=== PATIENT | male | born 1965 | race Caucasian/White ===

== ENCOUNTER 2023-01-01 11:17 | Emergency (ER) | payer MEDICAID, SELFPAY ==
[2023-01-01 11:24] VITALS: BP 188/88; PULSE 108; RESP 20; TEMP 36.8; O2SAT 96; BMI 23.4
--- NOTE | 2023-01-01 11:30 | ED_ITS ---
HPI - Extremity Injury (Lower) General Chief Complaint: Extremity Injury, Lower Stated Complaint: R LEG PAIN/COMPLICATIONS Time Seen by Provider: 01/01/23 11:23 History of Present Illness HPI Narrative: this patient is here to have his leg evaluated after having an emergency surgical procedure done outlast. After having the procedure he flew home. He does not have any operative reports but twenty describes it he had a blunt injury to his legs it caused a large hematoma and ended up having a near compartment syndrome so they did emergency procedure to decompress the swelling in his right leg and put in a wound pump after that. He is not on any antibiotics. He is not running a fever. He's not on any anticoagulants. He did not have deep vein thrombosis it was all related to a traumatic event. He does not have a physician in the area. Here for wound evaluation and recommendations for follow-up. 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 They showed me pictures of his leg postoperatively and consistent with a drainage procedure for a hematoma and his right calf area. No doubt they did that to prevent compartment syndrome. Were awaiting transfer of his records from that institution but have received nothing at the time this dictation. Constitutional his vital signs showed mild elevation of his blood pressure probably due to anxiety and discomfort. He says he's been taking half of the Vicodin tablet every six hours. Examination extremity shows the dressing to be taken down. It actually looks good with no evidence of erythema or purulence or follow smell. Incisional wounds are noted where they had the drainage for his back. His pulses are distal extremities are present. He does have some edema of the distal ankle and foot. He confided in me that he slept all night last night with the leg in a dependent position. Proximally he does not have any venous cords or ropiness in his thigh area. MDM - Extremity Injury (Lower) MDM Narrative Medical decision making narrative: we will do an ultrasound to make sure he has no deep vein thrombosis. He will need to be referred to orthopedics occupational health nurse manager. I'll give him three days worth of pain medications. We will redress the wound and apply a wide Bill wrap to help rid of the peripheral edema and we also talked about the necessity of keeping the leg elevated. Discharge Plan Discharge Chief Complaint: Extremity Injury, Lower Clinical Impression: Post-op pain Patient Disposition: Home, Self-Care Time of Disposition Decision: 12:45 Prescriptions / Home Meds: No Action hydrocodone-acetaminophen 5-325 mg tablet 0.5 tab PO Q6H PRN (Reason: pain) ibuprofen 200 mg capsule 600 mg PO BID Instructions: Pain Management After Surgery (DC) Additional Instructions: elevate leg/niorco Stand Alone Forms: Portal Instructions Referrals: Physician,Non-Staff, MD [Primary Care Provider] - 1 week
--- NOTE | 2023-01-01 11:31 | US_ITS ---
The [address] [address] Patient Name: JD GARCIA MRN: [id number] date: 1965 Sex: M Assigned Patient Location: ER Current Patient Location: ER Accession/Order Number: [id number] Exam Date: 01/01/2023 12:05 Report Date: 01/01/2023 12:42 At the request of: BECKIE ELIAS Procedure: US venous doppler LE RT EXAM: US venous doppler LE RT HISTORY: post op swelling COMPARISON: None. TECHNIQUE: Evaluation of the deep veins of the right lower extremity was performed utilizing B-mode, color flow and spectral analysis. FINDINGS: The visualized vessels comprising the deep venous systems from the common femoral vein through the calf veins demonstrate appropriate compressibility, spontaneous color Doppler flow, and augmentation of flow on spectral Doppler with distal compression. Additional findings: There is short segment of occlusive thrombus involving the mid great saphenous vein, extending to the distal up to the wound, representing thrombophlebitis. There is soft tissue swelling. IMPRESSION: No sonographic evidence of deep venous thrombosis of the right lower extremity. Short segment of occlusive thrombus involving the mid great saphenous vein, extending to the distal up to the wound, representing thrombophlebitis. Electronically authenticated by: CORINNE SHEETS Date: 01/01/2023 12:42
[2023-01-01 11:50] VITALS: O2SAT 97
[2023-01-01] MEDS: HYDROMORPHONE HCL 1 MG/ML CARTRIDGE IM (11:55)
[2023-01-01 12:24] VITALS: O2SAT 95
[2023-01-01 13:10] VITALS: BP 157/88; PULSE 84; RESP 18; O2SAT 99
== END 2023-01-01 13:20 | disposition home or self-care (01) ==
PROVIDERS: Emergency Provider Emergency Medicine Emergency Medical Services; Family Provider Family Medicine
DX: G89.18 Other acute postprocedural pain (principal); M79.604 Pain in right leg
CPT/HCPCS: 93971; 96372; 99284; J1170

== ENCOUNTER 2024-02-06 13:46 | Emergency (ER) | payer MEDICAID, SELFPAY ==
[2024-02-06 13:49] VITALS: BP 136/83; PULSE 83; TEMP 36.6; O2SAT 98; BMI 20.9
[2024-02-06] MEDS: LIDOCAINE/EPINEPHRINE/TETRACAINE 3 ML GEL.PF.APP TOPICAL (14:17)
[2024-02-06] MEDS: ONDANSETRON PF 4 MG/2 ML VIAL IV (14:18)
[2024-02-06] MEDS: VANCOMYCIN HCL 1,000 MG in 0.9 % SODIUM CHLORIDE 250 ML 250 MG IV (14:18)
[2024-02-06] MEDS: KETOROLAC TROMETHAMINE 30 MG/ML VIAL IVP (14:18)
--- NOTE | 2024-02-06 14:20 | ED.GENADUL1 ---
HPI HPI - General Adult General Chief complaint: Skin/Abscess/Foreign Body Stated complaint: RIGHT BREAST REDNESS AND TENDER Time Seen by Provider: 02/06/24 13:54 Source: patient Mode of arrival: walk-in History of Present Illness HPI narrative: 58-year-old male presents here with a chief presents around the right nipple area. Patient had a history of a piercing with an abscess over a year ago. He states 5 days ago he began to have some tenderness. He has been taking doxycycline. He presents today states he does not feel well. He is afebrile. Does not appear toxic but states he has been nauseous. Related Data Home Medications ?Medication ?Instructions ?Recorded ?Confirmed hydrocodone 5 mg-acetaminophen 325 0.5 tab PO Q6H PRN pain 01/01/23 01/01/23 mg tablet ibuprofen 200 mg capsule 600 mg PO BID 01/01/23 01/01/23 Allergies Allergy/AdvReac Type Severity Reaction Status Date / Time No Known Drug Allergies Allergy Verified 01/01/23 11:24 Opioid HPI Opioid Management Most Recent Opioid Data: Last Pain Scale 8 02/06/24 14:18 Last MAR Pain Assessment 02/06/24 14:18 Review of Systems ROS Narrative All Systems are negative except as noted/marked.All systems reviewed and otherwise negative this Exam Narrative Exam Narrative: Nurses note and vital signs reviewed and patient is not hypoxic. General: The patient appears well and in no apparent distress. Patient is resting comfortably on cart. Skin: Warm, dry, no pallor noted. 8x11cm area of induration to right breast around right nipple region Head: Normocephalic, atraumatic Eye: Normal conjunctiva, no drainage, EOMI. PERRL Ears, Nose, Mouth, and Throat: oral mucosa is moist. Nares patent. Mouth without vesicles. Ear canals patent. Tm's without Erythema Cardiovascular: Regular Rate and Rhythm Musculoskeletal: The patient has no evidence of calf tenderness, no pitting edema, symmetrical pulses noted bilaterally Neurological: A&O x4, normal speech Psychiatric: Cooperative Constitutional Vital Signs, click to edit/add: Last Vital Signs Temp 98 F 02/06/24 13:49 Pulse 83 02/06/24 13:49 Resp 22 H 02/06/24 13:49 BP 136/83 02/06/24 13:49 Pulse Ox 98 02/06/24 13:49 Course Vital Signs Vital signs: Vital Signs Temperature 98 F 02/06/24 13:49 Pulse Rate 83 02/06/24 13:49 Respiratory Rate 22 H 02/06/24 13:49 Blood Pressure 136/83 02/06/24 13:49 Pulse Oximetry 98 02/06/24 13:49 Temperature 98 F 02/06/24 13:49 Pulse Rate 83 02/06/24 13:49 Respiratory Rate 22 H 02/06/24 13:49 Blood Pressure 136/83 02/06/24 13:49 Pulse Oximetry 98 02/06/24 13:49 Medical Decision Making MDM Narrative Medical decision making narrative: Chief complaint of recurrent abscess to the right breast. Patient has a history of a nipple piercing last year and had an abscess. 5 days ago he began to have redness. He is currently on doxycycline. Area was anesthetized with let solution injected with 1% lidocaine solution x 3 3 cc today. Small incision made with 11 blade. Copious amount of purulent drainage was expressed from the area. Area was then irrigated with Hibiclens normal saline. Quarter inch packing then placed. Dry dressing applied by nursing staff. Patient is told to continue with his antibiotics as prescribed. He will be given short-term prescription for pain medicine. Follow-up with surgery. Instructions on removing packing were discussed. Patient states he may return to the emergency room for packing removal in 2 days. Patient verbalized understanding agrees with plan of care. Patient was given IV antibiotics labs were reviewed and unremarkable. Blood cultures are currently pending. Patient looks well at discharge Differential Diagnosis Differential Diagnosis: cellulitis, abscess Medical Records Medical records reviewed: Yes I reviewed the patient's medical records Lab Data Lab results reviewed: Yes I reviewed the patient's lab results Labs: Lab Results 02/06/24 Range/Units 14:07 Sodium 138 (136-145) mmol/L Potassium 4.1 (3.5-5.1) mmol/L Chloride 101 (98-107) mmol/L Carbon Dioxide 28.0 (21.0-32.0) mmol/L Anion Gap 13.1 BUN 10.0 (7.0-18.0) mg/dL Creatinine 1.07 (0.70-1.30) mg/dL Est GFR ( Amer) >60 (>=60) Est GFR (Non-Af Amer) >60 (>=60) BUN/Creatinine Ratio 9.3 Glucose 162 H (74-106) mg/dL Calcium 8.9 (8.5-10.1) mg/dL Total Bilirubin 1.3 H (0.2-1.0) mg/dL AST 23 (15-37) U/L ALT 27 (16-63) U/L Alkaline Phosphatase 106 (46-116) U/L Total Protein 7.6 (6.4-8.2) g/dL Albumin 3.6 (3.4-5.0) g/dL Globulin 4.0 g/dL Albumin/Globulin Ratio 0.9 Discharge Plan Discharge Stand Alone Forms: Portal Instructions Chief Complaint: Skin/Abscess/Foreign Body Clinical Impression: Abscess of skin or subcutaneous tissue Patient Disposition: Home, Self-Care Time of Disposition Decision: 15:30 Condition: Good Prescriptions / Home Meds: No Action hydrocodone-acetaminophen 5-325 mg tablet 0.5 tab PO Q6H PRN (Reason: pain) ibuprofen 200 mg capsule 600 mg PO BID Print Language: Georgian Instructions: Abscess Incision and Drainage (DC), Incision and Drainage (ED) Referrals: Kan Tavera MD [Physician] - 1 week Physician,Non-Staff, [Primary Care Provider] - 1 week
[2024-02-06 14:36] LABS: Alanine Aminotransferase 27 U/L (16-63); Albumin Globulin Ratio 0.9; Albumin Level 3.6 g/dL (3.4-5.0); Alkaline Phosphatase 106 U/L (46-116); Anion Gap 13.1; Aspartate Amino Transferase 23 U/L (15-37); BUN Creatinine Ratio 9.3; Bilirubin Total 1.3 mg/dL (0.2-1.0); Calcium 8.9 mg/dL (8.5-10.1); Chloride 101 mmol/L (98-107); Estimated GFR (African America >60 (>=60); Estimated GFR (Non-African Ame >60 (>=60); Glucose 162 mg/dL (74-106); Potassium 4.1 mmol/L (3.5-5.1); Sodium 138 mmol/L (136-145); Total Protein 7.6 g/dL (6.4-8.2)
[2024-02-06 14:37] LABS: Basophils Percent Auto 0.4 % (0.2-2.0); Eosinophils Absolute Auto 0.5 10^3/uL (0.0-0.7); Eosinophils Percent Auto 5.6 % (0.9-7.0); Hematocrit 46.5 % (42.0-54.0); Hemoglobin 15.8 g/dL (14.0-18.0); Immature Granulocytes Abs Auto 0.02 10^3/uL (0.00-0.03); Immature Granulocytes Pct Auto 0.2 % (0.0-0.5); Lymphocytes Absolute Auto 1.7 10^3/uL (1.2-3.8); Lymphocytes Percent Auto 18.9 % (20.5-60.0); Mean Corpuscular Hemoglobin 32.8 pg (25.9-34.0); Mean Corpuscular Volume 96.7 fL (80.0-94.0); Mean Platelet Volume 10.1 fL (9.5-13.5); Monocytes Absolute Auto 0.6 10^3/uL (0.3-0.8); Monocytes Percent Auto 6.7 % (1.7-12.0); Neutrophils Absolute Auto 6.1 10^3/uL (1.4-6.5); Neutrophils Percent Auto 68.2 % (43.0-75.0); Platelet Count 127 10^3/uL (150-450); Red Blood Count 4.81 10^6/uL (4.70-6.10); Red Cell Distribution Width 12.6 % (11.0-15.0)
[2024-02-06] MEDS: LIDOCAINE HCL 1% 100 MG/10 ML MDV INJ (14:58)
== END 2024-02-06 15:57 | disposition home or self-care (01) ==
PROVIDERS: Physician Assistant; Emergency Provider Emergency Medicine; Family Provider Family Medicine
DX: N61.1 Abscess of the breast and nipple (principal)
CPT/HCPCS: 10060; 36415; 80053; 85025; 87040; 87070; 87075; 96365; 96366; 96375; 99284; J1885; J2405; J3370

== ENCOUNTER 2024-02-08 18:07 | Emergency (ER) | payer MEDICAID, SELFPAY ==
[2024-02-08 18:08] VITALS: BP 135/80; PULSE 80; TEMP 36.4; O2SAT 97; BMI 20.9
--- OUTSIDE RECORDS SUMMARY | 2024-02-08 18:23 | XMS_ITS | CCD ---
Author Organization [facility] Inform ion Partnership [employer] [facility] Care Team Providers Care Product Safety Professional Name Role Phone Vicente Reyes Unavailable [phone] Medications Current Medications Medication Drug Class(es) Dates Sig (Normalized) Sig (Original) adalimumab (1 source) Tumor Necrosis Factor Milla Hu chris Active Problems Active Problems Problem Classification Problem Date Documented Da te Episodic/Chronic Esophageal disorders (4 sources) Esophageal varices; Translations: [Esophageal varices without bleeding] Onset: 01-24-2022 Resolved: 01-24-2022 Chronic Hepatitis (2 sources) Chronic hepatitis C; Translations: [Chronic viral hepatitis C] 02-02-2024 Chronic Hepatitis (1 source) Viral hepatitis C; Translations: [Unspecified viral hepatitis C without hepatic coma] Episodic Other inflammatory condition of skin (2 sources) Psoriasis; Translations: [Psoriasis, unspecified] 02-02-2024 Chronic Other liver diseases (2 sources) Unspecified cirrhosis of liver; Translations: [Cirrhotic] Onset: 01-24-2022 Resolved: 01-24-2022 Chronic Other liver diseases (1 source) Cirrhosis of liver; Translations: [Unspecified cirrhosis of liver] 02-02-2024 Chronic Past or Other Problems Problem Classification Problem Date Documented Da te Episodic/Chronic Genitourinary symptoms and ill-defined conditions (1 source) Hematuria, unspecified Onset: 01-24-2022 Resolved: 01-24-2022 Episodic Results Test Name Value Interpretation Reference Range Facility Complete Blood Count Auto Di ffon 12-17-2021 Basophils (Bld) [#/Vol] 0.0 10*3/uL Normal 0.0-0.2 [facility] Comment on above: Order Comment: Reaso n for Exam Hepatitis C Result Comment: PERF ORMED BY: [facility] [address] [place] [address] PATHOLOGIST SOLAR RESOURCE ASSESSOR CODY KULKARNI M.D. Performed By: #### C BC #### [address] Performed By: #### H BCAB, HCV RNAQNT, HBSAG, HCV BLANCA #### [facility] , #### CBC, PT, CMP #### [address] Basophils/100 WBC (Bld) 0.7 % Normal . [facility] Comment on above: Order Comment: Reaso n for Exam Hepatitis C Performed By: #### C BC #### [address] Performed By: #### H BCAB, HCV RNAQNT, HBSAG, HCV BLANCA #### [facility] , #### CBC, PT, CMP #### [address] Eosinophils (Bld) [#/Vol] 0.3 10*3/uL Normal 0.0-0.45 [facility] Comment on above: Order Comment: Reaso n for Exam Hepatitis C Performed By: #### C BC #### [address] Performed By: #### H BCAB, HCV RNAQNT, HBSAG, HCV BLANCA #### [facility] , #### CBC, PT, CMP #### [address] Eosinophils/100 WBC (Bld) 7.4 % Normal . [facility] Comment on above: Order Comment: Reaso n for Exam Hepatitis C Performed By: #### C BC #### [address] Erythrocyte distribution width (RBC) [Ratio] 13.5 % Normal 12.0-14.8 [facility] Comment on above: Order Comment: Reaso n for Exam Hepatitis C Performed By: #### C BC #### [address] Performed By: #### H BCAB, HCV RNAQNT, HBSAG, HCV BLANCA #### [facility] , #### CBC, PT, CMP #### [address] Hematocrit (Bld) [Volume fraction] 40.9 % Normal 38.8-50.0 [facility] Comment on above: Order Comment: Reaso n for Exam Hepatitis C Performed By: #### C BC #### [address] Hemoglobin (Bld) [Mass/Vol] 14.0 g/dL Normal 13.0-17.0 [facility] Comment on above: Order Comment: Reaso n for Exam Hepatitis C Performed By: #### C BC #### [address] Lymphocytes (Bld) [#/Vol] 1.8 10*3/uL Normal 1.00-4.8 [facility] Comment on above: Order Comment: Reaso n for Exam Hepatitis C Performed By: #### C BC #### [address] Lymphocytes/100 WBC (Bld) 38.7 % Normal . [facility] Comment on above: Order Comment: Reaso n for Exam Hepatitis C Performed By: #### C BC #### [address] MCH (RBC) [Entitic mass] 33.9 pg Normal 27.5-35.2 [facility] Comment on above: Order Comment: Reaso n for Exam Hepatitis C Performed By: #### C BC #### [place] [address] [place] MCV (RBC) [Entitic vol] 99.1 fL Normal 83.5-101 [facility] Comment on above: Order Comment: Reaso n for Exam Hepatitis C Performed By: #### C BC #### [address] Mean Corpuscular HGB Conc 34.2 g/dL Normal 32.5-35.6 [facility] Comment on above: Order Comment: Reaso n for Exam Hepatitis C Performed By: #### C BC #### [facility] [address] [place] [address] [place] Performed By: #### H BCAB, HCV RNAQNT, HBSAG, HCV BLANCA #### [facility] , #### CBC, PT, CMP #### [place] [address] [place] Monocytes (Bld) [#/Vol] 0.5 10*3/uL Normal 0.0-0.8 [facility] Comment on above: Order Comment: Reaso n for Exam Hepatitis C Performed By: #### C BC #### [address] Monocytes/100 WBC (Bld) 10.0 % Normal . [facility] Comment on above: Order Comment: Reaso n for Exam Hepatitis C Performed By: #### C BC #### [address] Neutrophils (Bld) [#/Vol] 2.0 10*3/uL Normal 1.8-7.7 [facility] Comment on above: Order Comment: Reaso n for Exam Hepatitis C Performed By: #### C BC #### [address] Performed By: #### H BCAB, HCV RNAQNT, HBSAG, HCV BLANCA #### [facility] , #### CBC, PT, CMP #### [place] [address] [place] Neutrophils/100 WBC (Bld) 43.2 % Normal . [facility] Comment on above: Order Comment: Reaso n for Exam Hepatitis C Performed By: #### C BC #### [place] [address] [place] Nucleated RBC/100 WBC (Bld) [Ratio] 0.1 % Normal 0-0.5 [facility] Comment on above: Order Comment: Reaso n for Exam Hepatitis C Performed By: #### C BC #### [address] Performed By: #### H BCAB, HCV RNAQNT, HBSAG, HCV BLANCA #### [facility] , #### CBC, PT, CMP #### [address] Platelet mean volume (Bld) [Entitic vol] 8.3 fL Normal 6.6-10.1 [facility] Comment on above: Order Comment: Reaso n for Exam Hepatitis C Performed By: #### C BC #### [address] Platelets (Bld) [#/Vol] 87 10*3/uL Low 150-450 [facility] Comment on above: Order Comment: Reaso n for Exam Hepatitis C Performed By: #### C BC #### [address] RBC (Bld) [#/Vol] 4.12 10*6/uL Normal 3.90-5.60 [facility] Comment on above: Order Comment: Reaso n for Exam Hepatitis C Performed By: #### C BC #### [address] WBC (Bld) [#/Vol] 4.6 10*3/uL Normal 4.5-11.0 [facility] Comment on above: Order Comment: Reaso n for Exam Hepatitis C Performed By: #### C BC #### [address] Eosinophils/100 WBC (Bld) 7.3 % Normal . [facility] Comment on above: Performed By: #### H BCAB, HCV RNAQNT, HBSAG, HCV BLANCA #### [facility] , #### CBC, PT, CMP #### [address] Hematocrit (Bld) [Volume fraction] 41.1 % Normal 38.8-50.0 [facility] Comment on above: Performed By: #### H BCAB, HCV RNAQNT, HBSAG, HCV BLANCA #### [facility] , #### CBC, PT, CMP #### [address] Hemoglobin (Bld) [Mass/Vol] 14.1 g/dL Normal 13.0-17.0 [facility] Comment on above: Performed By: #### H BCAB, HCV RNAQNT, HBSAG, HCV BLANCA #### [facility] , #### CBC, PT, CMP #### [address] Lymphocytes (Bld) [#/Vol] 1.9 10*3/uL Normal 1.00-4.8 [facility] Comment on above: Performed By: #### H BCAB, HCV RNAQNT, HBSAG, HCV BLANCA #### [facility] , #### CBC, PT, CMP #### [address] Lymphocytes/100 WBC (Bld) 40.7 % Normal . [facility] Comment on above: Performed By: #### H BCAB, HCV RNAQNT, HBSAG, HCV BLANCA #### [facility] , #### CBC, PT, CMP #### [address] MCH (RBC) [Entitic mass] 33.7 pg Normal 27.5-35.2 [facility] Comment on above: Performed By: #### H BCAB, HCV RNAQNT, HBSAG, HCV BLANCA #### [facility] , #### CBC, PT, CMP #### [address] MCV (RBC) [Entitic vol] 98.4 fL Normal 83.5-101 [facility] Comment on above: Performed By: #### H BCAB, HCV RNAQNT, HBSAG, HCV BLANCA #### [facility] , #### CBC, PT, CMP #### [address] Monocytes (Bld) [#/Vol] 0.4 10*3/uL Normal 0.0-0.8 [facility] Comment on above: Performed By: #### H BCAB, HCV RNAQNT, HBSAG, HCV BLANCA #### [facility] , #### CBC, PT, CMP #### [facility] [address] Monocytes/100 WBC (Bld) 9.4 % Normal . [facility] Comment on above: Performed By: #### H BCAB, HCV RNAQNT, HBSAG, HCV BLANCA #### [facility] , #### CBC, PT, CMP #### [address] Neutrophils/100 WBC (Bld) 41.9 % Normal . [facility] Comment on above: Performed By: #### H BCAB, HCV RNAQNT, HBSAG, HCV BLANCA #### [facility] , #### CBC, PT, CMP #### [address] Platelet mean volume (Bld) [Entitic vol] 8.4 fL Normal 6.6-10.1 [facility] Comment on above: Performed By: #### H BCAB, HCV RNAQNT, HBSAG, HCV BLANCA #### [facility] , #### CBC, PT, CMP #### [facility] [address] [place] [address] [place] Platelets (Bld) [#/Vol] 89 10*3/uL Low 150-450 [facility] Comment on above: Performed By: #### H BCAB, HCV RNAQNT, HBSAG, HCV BLANCA #### [facility] , #### CBC, PT, CMP #### [address] RBC (Bld) [#/Vol] 4.17 10*6/uL Normal 3.90-5.60 [facility] Comment on above: Performed By: #### H BCAB, HCV RNAQNT, HBSAG, HCV BLANCA #### [facility] , #### CBC, PT, CMP #### [address] WBC (Bld) [#/Vol] 4.7 10*3/uL Normal 4.5-11.0 [facility] Comment on above: Performed By: #### H BCAB, HCV RNAQNT, HBSAG, HCV BLANCA #### [facility] , #### CBC, PT, CMP #### [address] Comprehensive Metabolic Pane [facility] 12-17-2021 Albumin [Mass/Vol] 3.6 g/dL Normal 3.2-5.5 [facility] Comment on above: Order Comment: Reaso n for Exam Hepatitis C Performed By: #### H BCAB, HCV RNAQNT, HBSAG, HCV BLANCA #### [facility] , #### CBC, PT, CMP #### [address] Albumin/Globulin [Mass ratio] 0.9 {ratio} Normal [facility] Comment on above: Order Comment: Reaso n for Exam Hepatitis C Performed By: #### H BCAB, HCV RNAQNT, HBSAG, HCV BLANCA #### [facility] , #### CBC, PT, CMP #### [address] ALP [Catalytic activity/Vol] 116 U/L High 32-92 [facility] Comment on above: Order Comment: Reaso n for Exam Hepatitis C Result Comment: PERF ORMED BY: [place] [address] PATHOLOGIST SOLAR RESOURCE ASSESSOR CODY KULKARNI M.D. Performed By: #### H BCAB, HCV RNAQNT, HBSAG, HCV BLANCA #### [facility] , #### CBC, PT, CMP #### [facility] [address] [place] [address] [place] ALT [Catalytic activity/Vol] 42 U/L Normal 10-60 [facility] Comment on above: Order Comment: Reaso n for Exam Hepatitis C Performed By: #### H BCAB, HCV RNAQNT, HBSAG, HCV BLANCA #### [facility] , #### CBC, PT, CMP #### [facility] [address] [place] [address] [place] AST [Catalytic activity/Vol] 56 U/L High 10-42 [facility] Comment on above: Order Comment: Reaso n for Exam Hepatitis C Performed By: #### H BCAB, HCV RNAQNT, HBSAG, HCV BLANCA #### [facility] , #### CBC, PT, CMP #### [facility] [address] [place] [address] [place] Bilirubin [Mass/Vol] 0.8 mg/dL Normal 0.3-1.2 [facility] Comment on above: Order Comment: Reaso n for Exam Hepatitis C Performed By: #### H BCAB, HCV RNAQNT, HBSAG, HCV BLANCA #### [facility] , #### CBC, PT, CMP #### [facility] [address] [place] [address] [place] Calcium [Mass/Vol] 8.9 mg/dL Normal 8.2-10.2 [facility] Comment on above: Order Comment: Reaso n for Exam Hepatitis C Performed By: #### H BCAB, HCV RNAQNT, HBSAG, HCV BLANCA #### [facility] , #### CBC, PT, CMP #### [facility] [address] [place] [address] [place] Chloride [Moles/Vol] 102 mmol/L Normal 95-114 [facility] Comment on above: Order Comment: Reaso n for Exam Hepatitis C Performed By: #### H BCAB, HCV RNAQNT, HBSAG, HCV BLANCA #### [facility] , #### CBC, PT, CMP #### [facility] [address] CO2 [Moles/Vol] 22.7 mmol/L Normal 22.0-30.0 [facility] Comment on above: Order Comment: Reaso n for Exam Hepatitis C Performed By: #### H BCAB, HCV RNAQNT, HBSAG, HCV BLANCA #### [facility] , #### CBC, PT, CMP #### [facility] [address] [place] [address] Creatinine [Mass/Vol] 0.86 mg/dL Normal 0.64-1.27 [facility] Comment on above: Order Comment: Reaso n for Exam Hepatitis C Performed By: #### H BCAB, HCV RNAQNT, HBSAG, HCV BLANCA #### [facility] , #### CBC, PT, CMP #### [facility] [address] [place] [address] Estimated GFR ( Dionne > 60 [facility] Comment on above: Order Comment: Reaso n for Exam Hepatitis C Result Comment: GFR estimated reference range: According to KDOQI guidelines, <60 ml/min/1.73m2 is sufficient to diagnose a patient with chronic kidney disease. Performed By: #### H BCAB, HCV RNAQNT, HBSAG, HCV BLANCA #### [facility] , #### CBC, PT, CMP #### [facility] [address] [place] [address] Estimated GFR (Non- Am > 60 [facility] Comment on above: Order Comment: Reaso n for Exam Hepatitis C Performed By: #### H BCAB, HCV RNAQNT, HBSAG, HCV BLANCA #### [facility] , #### CBC, PT, CMP #### [facility] [address] Globulin (S) [Mass/Vol] 4.1 g/dL Normal [facility] Comment on above: Order Comment: Reaso n for Exam Hepatitis C Performed By: #### H BCAB, HCV RNAQNT, HBSAG, HCV BLANCA #### [facility] , #### CBC, PT, CMP #### [facility] [address] [place] [address] Glucose [Mass/Vol] 81 mg/dL Normal 70-100 [facility] Comment on above: Order Comment: Reaso n for Exam Hepatitis C Result Comment: [facility] Glucose Reference Range is dependent on time and content of last meal. Glucose of more than 200 mg/dL in a nonstressed, ambulatory subject supports the diagnosis of Diabetes Mellitus. ADA recommended reference range Performed By: #### H BCAB, HCV RNAQNT, HBSAG, HCV BLANCA #### [facility] , #### CBC, PT, CMP #### [facility] [address] [place] [address] Potassium [Moles/Vol] 4.0 mmol/L Normal 3.5-5.1 [facility] Comment on above: Order Comment: Reaso n for Exam Hepatitis C Performed By: #### H BCAB, HCV RNAQNT, HBSAG, HCV BLANCA #### [facility] , #### CBC, PT, CMP #### [facility] [address] [place] [address] Protein [Mass/Vol] 7.7 g/dL Normal 6.1-7.9 [facility] Comment on above: Order Comment: Reaso n for Exam Hepatitis C Performed By: #### H BCAB, HCV RNAQNT, HBSAG, HCV BLANCA #### [facility] , #### CBC, PT, CMP #### [facility] [address] [place] [address] Sodium [Moles/Vol] 135 mmol/L Low 136-146 [facility] Comment on above: Order Comment: Reaso n for Exam Hepatitis C Performed By: #### H BCAB, HCV RNAQNT, HBSAG, HCV BLANCA #### [facility] , #### CBC, PT, CMP #### [facility] [address] [place] [address] Urea nitrogen [Mass/Vol] 11 mg/dL Normal 9-23 [facility] Comment on above: Order Comment: Reaso n for Exam Hepatitis C Performed By: #### H BCAB, HCV RNAQNT, HBSAG, HCV BLANCA #### [facility] , #### CBC, PT, CMP #### [facility] [address] [place] [address] Albumin [Mass/Vol] 3.7 g/dL Normal 3.2-5.5 [facility] Comment on above: Performed By: #### H BCAB, HCV RNAQNT, HBSAG, HCV BLANCA #### [facility] , #### CBC, PT, CMP #### [facility] [address] [place] [address] [place] ALP [Catalytic activity/Vol] 115 U/L High 32-92 [facility] Comment on above: Performed By: #### H BCAB, HCV RNAQNT, HBSAG, HCV BLANCA #### [facility] , #### CBC, PT, CMP #### [facility] [address] [place] [address] [place] ALT [Catalytic activity/Vol] 43 U/L Normal 10-60 [facility] Comment on above: Performed By: #### H BCAB, HCV RNAQNT, HBSAG, HCV BLANCA #### [facility] , #### CBC, PT, CMP #### [facility] [address] [place], [place] [id number] [place] AST [Catalytic activity/Vol] 57 U/L High 10-42 [facility] Comment on above: Performed By: #### H BCAB, HCV RNAQNT, HBSAG, HCV BLANCA #### [facility] , #### CBC, PT, CMP #### [address] Bilirubin [Mass/Vol] 0.7 mg/dL Normal 0.3-1.2 [facility] Comment on above: Performed By: #### H BCAB, HCV RNAQNT, HBSAG, HCV BLANCA #### [facility] , #### CBC, PT, CMP #### [address] Calcium [Mass/Vol] 9.0 mg/dL Normal 8.2-10.2 [facility] Comment on above: Performed By: #### H BCAB, HCV RNAQNT, HBSAG, HCV BLANCA #### [facility] , #### CBC, PT, CMP #### [address] Chloride [Moles/Vol] 101 mmol/L Normal 95-114 [facility] Comment on above: Performed By: #### H BCAB, HCV RNAQNT, HBSAG, HCV BLANCA #### [facility] , #### CBC, PT, CMP #### [address] Creatinine [Mass/Vol] 0.89 mg/dL Normal 0.64-1.27 [facility] Comment on above: Performed By: #### H BCAB, HCV RNAQNT, HBSAG, HCV BLANCA #### [facility] , #### CBC, PT, CMP #### [address] Globulin (S) [Mass/Vol] 4.2 g/dL Normal [facility] Comment on above: Performed By: #### H BCAB, HCV RNAQNT, HBSAG, HCV BLANCA #### [facility] , #### CBC, PT, CMP #### [address] Protein [Mass/Vol] 7.9 g/dL Normal 6.1-7.9 [facility] Comment on above: Performed By: #### H BCAB, HCV RNAQNT, HBSAG, HCV BLANCA #### [facility] , #### CBC, PT, CMP #### [address] Sodium [Moles/Vol] 134 mmol/L Low 136-146 [facility] Comment on above: Performed By: #### H BCAB, HCV RNAQNT, HBSAG, HCV BLANCA #### [facility] , #### CBC, PT, CMP #### [address] Hep C RT-PCR, Qnt (Non-Graph )on 12-17-2021 Hepatitis C Quantitation Not detected Normal . [facility] Comment on above: Order Comment: Reaso n for Exam Hepatitis C Performed By: #### H BCAB, HCV RNAQNT, HBSAG, HCV BLANCA #### [facility] , #### CBC, PT, CMP #### [address] Test Information: Normal . [facility] Comment on above: Order Comment: Reaso n for Exam Hepatitis C Result Comment: The quantitative range of this assay is 15 IU/mL to 100 million IU/mL. Performed at: [address] [id number] School Occupational Therapist: Zhane Lowe MD, Phone: [phone] PERFORMED BY: [place] [address] PATHOLOGIST SOLAR RESOURCE ASSESSOR CODY KULKARNI M.D. Performed By: #### H BCAB, HCV RNAQNT, HBSAG, HCV BLANCA #### [facility] , #### CBC, PT, CMP #### [address] Lipid Panelon 12-17-2021 Cholesterol [Mass/Vol] 85 mg/dL Low 140-200 [facility] Comment on above: Result Comment: Chol less than 200 mg/dl low risk Chol 201-239 mg/dl borderline risk Chol 240 mg/dl and greater high risk Performed By: #### H BCAB, HCV RNAQNT, HBSAG, HCV BLANCA #### [facility] , #### CBC, PT, CMP #### [facility] [address] [place] [address] Cholesterol in HDL [Mass/Vol] 35 mg/dL Normal 29-71 [facility] Comment on above: Result Comment: HDL CHOL ATP-III CLASSIFICATION Cardiovascular Risk HDL > or equal to 60 mg/dL LOW HDL < 40 mg/dL HIGH Performed By: #### H BCAB, HCV RNAQNT, HBSAG, HCV BLANCA #### [facility] , #### CBC, PT, CMP #### [facility] [address] [place] [address] Cholesterol.total/C holesterol in HDL [Mass ratio] 2.4 {ratio} Normal <5.0 [facility] Comment on above: Result Comment: PERF ORMED BY: [place] [address] PATHOLOGIST SOLAR RESOURCE ASSESSOR CODY KULKARNI M.D. Performed By: #### H BCAB, HCV RNAQNT, HBSAG, HCV BLANCA #### [facility] , #### CBC, PT, CMP #### [facility] [address] [place] [address] LDL Cholesterol,Calcula lynette 46 mg/dL Normal 0-100 [facility] Comment on above: Result Comment: LDL ATP III CLASSIFICATION LDL less than 100 mg/dL Optimal LDL 100-129 mg/dL Near or above optimal LDL 130-159 mg/dL Borderline high LDL 160-189 mg/dL High LDL greater than 189 mg/dL Very high Performed By: #### H BCAB, HCV RNAQNT, HBSAG, HCV BLANCA #### [facility] , #### CBC, PT, CMP #### [address] Triglyceride w/Reflex 21 mg/dL Low 35-149 [facility] Comment on above: Result Comment: TRIG ATP III CLASSIFICATION TRIG less than 150 mg/dL Normal TRIG 150-199 mg/dL Borderline high TRIG 200-500 mg/dL High TRIG greater than 500 mg/dL Very high Standard traceable to the Center for Disease Conrtrol and Prevention (CDC) test method. Performed By: #### H BCAB, HCV RNAQNT, HBSAG, HCV BLANCA #### [facility] , #### CBC, PT, CMP #### [address] VLDL CHOLESTEROL 4 mg/dL Normal [facility] Comment on above: Performed By: #### H BCAB, HCV RNAQNT, HBSAG, HCV BLANCA #### [facility] , #### CBC, PT, CMP #### [address] QuantiFERON TB Goldon 2021 QFTB Criteria Normal . [facility] Comment on above: Result Comment: The QuantiFERON-TB Gold Plus result is determined by subtracting the Nil value from either TB antigen (Ag) tube. The mitogen tube serves as a control for the test. Performed By: #### H BCAB, HCV RNAQNT, HBSAG, HCV BLANCA #### [facility] , #### CBC, PT, CMP #### [address] Quant TB Ag Value 2.38 Normal . [facility] Comment on above: Performed By: #### H BCAB, HCV RNAQNT, HBSAG, HCV BLANCA #### [facility] , #### CBC, PT, CMP #### [address] Quant TB Gold Plus Negative Normal Negative [facility] Comment on above: Result Comment: The specimen received for QuantiFERON testing was incubated by the ordering institution. Specific procedures outlined in our Directory of Services and in the package insert for the QuantiFERON Gold (In Tube) test must be followed to enable for proper stimulation of cells for the production of interferon gamma. Chemiluminescence immunoassay methodology Performed at: [facility] [id number] School Occupational Therapist: Alejandro Carter PhD, Phone: [phone] PERFORMED BY: [place] [address] PATHOLOGIST SOLAR RESOURCE ASSESSOR CODY KULKARNI M.D. Performed By: #### H BCAB, HCV RNAQNT, HBSAG, HCV BLANCA #### [facility] , #### CBC, PT, CMP #### [address] Quant TB2 Ag Value 2.56 Normal . [facility] Comment on above: Performed By: #### H BCAB, HCV RNAQNT, HBSAG, HCV BLANCA #### [facility] , #### CBC, PT, CMP #### [address] Quantiferon Nil Value 2.92 Normal . [facility] Comment on above: Performed By: #### H BCAB, HCV RNAQNT, HBSAG, HCV BLANCA #### [facility] , #### CBC, PT, CMP #### [address] Quantiferon TB Mitogen >10.00 Normal . [facility] Comment on above: Performed By: #### H BCAB, HCV RNAQNT, HBSAG, HCV BLANCA #### [facility] , #### CBC, PT, CMP #### [facility] [address] [place] [address] COVID-19 FRon 03-20-2021 SARS-CoV-2 (COVID-19) RNA AMBER+probe Ql (Unsp spec) Negative Normal Negative [facility] Comment on above: Order Comment: Healt hcare Worker?: N Result Comment: Testing for SARS-CoV-2 by RT-PCR This test was developed and its performance characteristics determined by [employer]) and validated at the [facility]. This test has not been FDA cleared or approved. This test has been authorized by FDA under an Emergency Use Authorization (EUA). This test has been validated in accordance with the FDA's Guidance Document (Policy for Diagnostics Testing in Laboratories Certified to Perform High Complexity Testing under CLIA prior to Emergency Use Authorization for Coronavirus Disease-2019 during the Public Health Emergency) issued on September 30, 2019. This test is only authorized for the duration of time the declaration that circumstances exist justifying the authorization of the emergency use of in vitro diagnostic tests for detection of SARS-CoV-2 virus and/or diagnosis of COVID-19 infection under section 564(b)(1) of the Act, 21 U.S.C. 360bbb-3(b)(1), unless the authorization is terminated or revoked sooner. PERFORMED BY: [place] [address] PATHOLOGIST SOLAR RESOURCE ASSESSOR CODY KULKARNI M.D. Performed By: #### C OVID 19 [facility] #### [address] liveron 03-20-2021 liver [facility] [place] [address] Ultrasound Report Signed Patient: Jose Angel Givens MR#: [id number] : 1965 Acct:[id number] Age/Sex: 55 / M ADM Date: 03/20/21 Loc: Room: Type: [facility] Attending Dr: Vicente Reyes MD Ordering Provider: Vicente Reyes MD Date of Service: 03/20/21 US/US liver: Hepatitis C Copies to: Vicente Reyes MD LIMITED ABDOMINAL ULTRASOUND - liver CLINICAL HISTORY: Hepatitis C COMPARISON: 04/14/2010 The gallbladder is physiologically distended without shadowing calculi, wall thickening or pericholecystic fluid. No intra- or extrahepatic biliary dilatation is evident. The common duct measures 4 - 5 mm. The liver shows increased echogenicity. This could be fatty infiltration however medical liver disease is also possible. No focal intrahepatic masses are seen. There is appropriate hepatopetal flow within the main portal vein. The pancreas shows no significant sonographic abnormality. Cursory evaluation of the right kidney reveals no hydronephrosis or fluid within Kowaslki's pouch. US/US liver IMPRESSION: NO GALLBLADDER PATHOLOGY. CONTINUED ECHOGENIC LIVER. NO ACUTE FINDINGS. Impression dictated by: Gilda Kovacs M.D.03/20/2021 12:24 PM Dictation Location: [place] [address] Tech: Alyce Lynn Transcribed By: RAJ 03/20/21 1224 Dictated By: Gilda Kovacs MD 03/20/21 1222 Signed By: 03/20/21 1224 Normal [facility] Complete Blood Count Auto Di ffon 03-01-2021 Basophils (Bld) [#/Vol] 0.0 10*3/uL Normal 0.0-0.2 [facility] Comment on above: Order Comment: Reaso n for Exam Hepatitis C Result Comment: PERF ORMED BY: [place] [address] PATHOLOGIST SOLAR RESOURCE ASSESSOR CODY KULKARNI M.D. Performed By: #### H BCAB, HCV RNAQNT, HBSAG, HCV BLANCA #### [facility] , #### CBC, PT, CMP #### [facility] [address] [place] [address] Basophils/100 WBC (Bld) 1.0 % Normal . [facility] Comment on above: Order Comment: Reaso n for Exam Hepatitis C Performed By: #### H BCAB, HCV RNAQNT, HBSAG, HCV BLANCA #### [facility] , #### CBC, PT, CMP #### [facility] [address] [place] [address] Eosinophils (Bld) [#/Vol] 0.2 10*3/uL Normal 0.0-0.45 [facility] Comment on above: Order Comment: Reaso n for Exam Hepatitis C Performed By: #### H BCAB, HCV RNAQNT, HBSAG, HCV BLANCA #### [facility] , #### CBC, PT, CMP #### [facility] [address] [place] [address] Eosinophils/100 WBC (Bld) 5.4 % Normal . [facility] Comment on above: Order Comment: Reaso n for Exam Hepatitis C Performed By: #### H BCAB, HCV RNAQNT, HBSAG, HCV BLANCA #### [facility] , #### CBC, PT, CMP #### [address] Erythrocyte distribution width (RBC) [Ratio] 13.9 % Normal 12.0-14.8 [facility] Comment on above: Order Comment: Reaso n for Exam Hepatitis C Performed By: #### H BCAB, HCV RNAQNT, HBSAG, HCV BLANCA #### [facility] , #### CBC, PT, CMP #### [address] Hematocrit (Bld) [Volume fraction] 41.7 % Normal 38.8-50.0 [facility] Comment on above: Order Comment: Reaso n for Exam Hepatitis C Performed By: #### H BCAB, HCV RNAQNT, HBSAG, HCV BLANCA #### [facility] , #### CBC, PT, CMP #### [address] Hemoglobin (Bld) [Mass/Vol] 14.3 g/dL Normal 13.0-17.0 [facility] Comment on above: Order Comment: Reaso n for Exam Hepatitis C Performed By: #### H BCAB, HCV RNAQNT, HBSAG, HCV BLANCA #### [facility] , #### CBC, PT, CMP #### [address] Lymphocytes (Bld) [#/Vol] 0.8 10*3/uL Low 1.00-4.8 [facility] Comment on above: Order Comment: Reaso n for Exam Hepatitis C Performed By: #### H BCAB, HCV RNAQNT, HBSAG, HCV BLANCA #### [facility] , #### CBC, PT, CMP #### [facility] [address] [place] [address] Lymphocytes/100 WBC (Bld) 21.2 % Normal . [facility] Comment on above: Order Comment: Reaso n for Exam Hepatitis C Performed By: #### H BCAB, HCV RNAQNT, HBSAG, HCV BLANCA #### [facility] , #### CBC, PT, CMP #### [address] MCH (RBC) [Entitic mass] 34.9 pg Normal 27.5-35.2 [facility] Comment on above: Order Comment: Reaso n for Exam Hepatitis C Performed By: #### H BCAB, HCV RNAQNT, HBSAG, HCV BLANCA #### [facility] , #### CBC, PT, CMP #### [address] MCV (RBC) [Entitic vol] 102.0 fL High 83.5-101 [facility] Comment on above: Order Comment: Reaso n for Exam Hepatitis C Performed By: #### H BCAB, HCV RNAQNT, HBSAG, HCV BLANCA #### [facility] , #### CBC, PT, CMP #### [facility] [address] [place] [address] Mean Corpuscular HGB Conc 34.2 g/dL Normal 32.5-35.6 [facility] Comment on above: Order Comment: Reaso n for Exam Hepatitis C Performed By: #### H BCAB, HCV RNAQNT, HBSAG, HCV BLANCA #### [facility] , #### CBC, PT, CMP #### [address] Monocytes (Bld) [#/Vol] 0.5 10*3/uL Normal 0.0-0.8 [facility] Comment on above: Order Comment: Reaso n for Exam Hepatitis C Performed By: #### H BCAB, HCV RNAQNT, HBSAG, HCV BLANCA #### [facility] , #### CBC, PT, CMP #### [facility] [address] [place] [address] [place] Monocytes/100 WBC (Bld) 13.0 % Normal . [facility] Comment on above: Order Comment: Reaso n for Exam Hepatitis C Performed By: #### H BCAB, HCV RNAQNT, HBSAG, HCV BLANCA #### [facility] , #### CBC, PT, CMP #### [place] [address] [place] Neutrophils (Bld) [#/Vol] 2.2 10*3/uL Normal 1.8-7.7 [facility] Comment on above: Order Comment: Reaso n for Exam Hepatitis C Performed By: #### H BCAB, HCV RNAQNT, HBSAG, HCV BLANCA #### [facility] , #### CBC, PT, CMP #### [facility] [address] [place] [address] [place] Neutrophils/100 WBC (Bld) 59.4 % Normal . [facility] Comment on above: Order Comment: Reaso n for Exam Hepatitis C Performed By: #### H BCAB, HCV RNAQNT, HBSAG, HCV BLANCA #### [facility] , #### CBC, PT, CMP #### [facility] [address] [place] [address] [place] Nucleated RBC/100 WBC (Bld) [Ratio] 0.2 % Normal 0-0.5 [facility] Comment on above: Order Comment: Reaso n for Exam Hepatitis C Performed By: #### H BCAB, HCV RNAQNT, HBSAG, HCV BLANCA #### [facility] , #### CBC, PT, CMP #### [facility] [address] [place] [address] [place] Platelet mean volume (Bld) [Entitic vol] 8.5 fL Normal 6.6-10.1 [facility] Comment on above: Order Comment: Reaso n for Exam Hepatitis C Performed By: #### H BCAB, HCV RNAQNT, HBSAG, HCV BLANCA #### [facility] , #### CBC, PT, CMP #### [facility] [address] Platelets (Bld) [#/Vol] 92 10*3/uL Low 150-450 [facility] Comment on above: Order Comment: Reaso n for Exam Hepatitis C Performed By: #### H BCAB, HCV RNAQNT, HBSAG, HCV BLANCA #### [facility] , #### CBC, PT, CMP #### [address] RBC (Bld) [#/Vol] 4.09 10*6/uL Normal 3.90-5.60 [facility] Comment on above: Order Comment: Reaso n for Exam Hepatitis C Performed By: #### H BCAB, HCV RNAQNT, HBSAG, HCV BLANCA #### [facility] , #### CBC, PT, CMP #### [facility] [address] [place] [address] WBC (Bld) [#/Vol] 3.7 10*3/uL Low 4.5-11.0 [facility] Comment on above: Order Comment: Reaso n for Exam Hepatitis C Performed By: #### H BCAB, HCV RNAQNT, HBSAG, HCV BLANCA #### [facility] , #### CBC, PT, CMP #### [facility] [address] [place] [address] Comprehensive Metabolic Pane mona 03-01-2021 Albumin [Mass/Vol] 3.1 g/dL Low 3.2-5.5 [facility] Comment on above: Order Comment: Reaso n for Exam Hepatitis C Performed By: #### H BCAB, HCV RNAQNT, HBSAG, HCV BLANCA #### [facility] , #### CBC, PT, CMP #### [facility] [address] [place] [address] [place] Albumin/Globulin [Mass ratio] 0.6 {ratio} Normal [facility] Comment on above: Order Comment: Reaso n for Exam Hepatitis C Performed By: #### H BCAB, HCV RNAQNT, HBSAG, HCV BLANCA #### [facility] , #### CBC, PT, CMP #### [facility] [address] [place] [address] [place] ALP [Catalytic activity/Vol] 168 U/L High 32-92 [facility] Comment on above: Order Comment: Reaso n for Exam Hepatitis C Performed By: #### H BCAB, HCV RNAQNT, HBSAG, HCV BLANCA #### [facility] , #### CBC, PT, CMP #### [facility] [address] [place] [address] [place] ALT [Catalytic activity/Vol] 84 U/L High 10-60 [facility] Comment on above: Order Comment: Reaso n for Exam Hepatitis C Performed By: #### H BCAB, HCV RNAQNT, HBSAG, HCV BLANCA #### [facility] , #### CBC, PT, CMP #### [facility] [address] [place] [address] [place] AST [Catalytic activity/Vol] 131 U/L High 10-42 [facility] Comment on above: Order Comment: Reaso n for Exam Hepatitis C Performed By: #### H BCAB, HCV RNAQNT, HBSAG, HCV BLANCA #### [facility] , #### CBC, PT, CMP #### [facility] [address] [place], [place] [id number] [place] Bilirubin [Mass/Vol] 2.0 mg/dL High 0.3-1.2 [facility] Comment on above: Order Comment: Reaso n for Exam Hepatitis C Result Comment: Samp les from patients who have taken Naproxen have shown spurious elevation in Total Bilirubin levels. A metabolite of Naproxen, O-desmethylnaproxen, has been shown to interfere with the Jendrassik-Grof method for measuring Total Bilirubin. Performed By: #### H BCAB, HCV RNAQNT, HBSAG, HCV BLANCA #### [facility] , #### CBC, PT, CMP #### [facility] [address] Calcium [Mass/Vol] 8.9 mg/dL Normal 8.2-10.2 [facility] Comment on above: Order Comment: Reaso n for Exam Hepatitis C Performed By: #### H BCAB, HCV RNAQNT, HBSAG, HCV BLANCA #### [facility] , #### CBC, PT, CMP #### [address] Chloride [Moles/Vol] 99 mmol/L Normal 95-114 [facility] Comment on above: Order Comment: Reaso n for Exam Hepatitis C Performed By: #### H BCAB, HCV RNAQNT, HBSAG, HCV BLANCA #### [facility] , #### CBC, PT, CMP #### [address] CO2 [Moles/Vol] 26.7 mmol/L Normal 22.0-30.0 [facility] Comment on above: Order Comment: Reaso n for Exam Hepatitis C Performed By: #### H BCAB, HCV RNAQNT, HBSAG, HCV BLANCA #### [facility] , #### CBC, PT, CMP #### [facility] [address] [place] [address] [place] Creatinine [Mass/Vol] 0.80 mg/dL Normal 0.64-1.27 [facility] Comment on above: Order Comment: Reaso n for Exam Hepatitis C Performed By: #### H BCAB, HCV RNAQNT, HBSAG, HCV BLANCA #### [facility] , #### CBC, PT, CMP #### [facility] [address] [place] [address] [place] Creatinine Clr Calc Pharmacy 109.62 [facility] Comment on above: Order Comment: Reaso n for Exam Hepatitis C Result Comment: PERF ORMED BY: [place] [address] PATHOLOGIST SOLAR RESOURCE ASSESSOR CODY KULKARNI M.D. Performed By: #### H BCAB, HCV RNAQNT, HBSAG, HCV BLANCA #### [facility] , #### CBC, PT, CMP #### [address] Estimated GFR ( Dionne > 60 [facility] Comment on above: Order Comment: Reaso n for Exam Hepatitis C Result Comment: GFR estimated reference range: According to KDOQI guidelines, <60 ml/min/1.73m2 is sufficient to diagnose a patient with chronic kidney disease. Performed By: #### H BCAB, HCV RNAQNT, HBSAG, HCV BLANCA #### [facility] , #### CBC, PT, CMP #### [facility] [address] [place] [address] Estimated GFR (Non- Am > 60 [facility] Comment on above: Order Comment: Reaso n for Exam Hepatitis C Performed By: #### H BCAB, HCV RNAQNT, HBSAG, HCV BLANCA #### [facility] , #### CBC, PT, CMP #### [facility] [address] [place] [address] Globulin (S) [Mass/Vol] 4.8 g/dL [facility] Comment on above: Order Comment: Reaso n for Exam Hepatitis C Performed By: #### H BCAB, HCV RNAQNT, HBSAG, HCV BLANCA #### [facility] , #### CBC, PT, CMP #### [facility] [address] [place] [address] Glucose [Mass/Vol] 96 mg/dL Normal 70-100 [facility] Comment on above: Order Comment: Reaso n for Exam Hepatitis C Result Comment: [place] Glucose Reference Range is dependent on time and content of last meal. Glucose of more than 200 mg/dL in a nonstressed, ambulatory subject supports the diagnosis of Diabetes Mellitus. ADA recommended reference range Performed By: #### H BCAB, HCV RNAQNT, HBSAG, HCV BLANCA #### [facility] , #### CBC, PT, CMP #### [facility] [address] [place] [address] Potassium [Moles/Vol] 4.1 mmol/L Normal 3.5-5.1 [facility] Comment on above: Order Comment: Reaso n for Exam Hepatitis C Performed By: #### H BCAB, HCV RNAQNT, HBSAG, HCV BLANCA #### [facility] , #### CBC, PT, CMP #### [facility] [address] [place] [address] Protein [Mass/Vol] 7.9 g/dL Normal 6.1-7.9 [facility] Comment on above: Order Comment: Reaso n for Exam Hepatitis C Performed By: #### H BCAB, HCV RNAQNT, HBSAG, HCV BLANCA #### [facility] , #### CBC, PT, CMP #### [facility] [address] [place] [address] Sodium [Moles/Vol] 136 mmol/L Normal 136-146 [facility] Comment on above: Order Comment: Reaso n for Exam Hepatitis C Performed By: #### H BCAB, HCV RNAQNT, HBSAG, HCV BLANCA #### [facility] , #### CBC, PT, CMP #### [facility] [address] [place] [address] [place] Urea nitrogen [Mass/Vol] 9 mg/dL Normal 9-23 [facility] Comment on above: Order Comment: Reaso n for Exam Hepatitis C Performed By: #### H BCAB, HCV RNAQNT, HBSAG, HCV BLANCA #### [facility] , #### CBC, PT, CMP #### [facility] [address] [place] [address] Hep C Genotyping Non Reflexo n 03-01-2021 Hepatitis C Genotype 1a Normal . [facility] Comment on above: Order Comment: Reaso n for Exam Hepatitis C Performed By: #### H BCAB, HCV RNAQNT, HBSAG, HCV BLANCA #### [facility] , #### CBC, PT, CMP #### [address] Please Note: Normal . [facility] Comment on above: Order Comment: Reaso n for Exam Hepatitis C Result Comment: This test was developed and its performance characteristics determined by [employer]. It has not been cleared or approved by the U.S. Food and Drug Administration. The FDA has determined that such clearance or approval is not necessary. This test is used for clinical purposes. It should not be regarded as investigational or for research. Performed at: [facility] [address] [id number] School Occupational Therapist: Zhane Lowe MD, Phone: [phone] PERFORMED BY: [place] [address] PATHOLOGIST SOLAR RESOURCE ASSESSOR CODY KULKARNI M.D. Performed By: #### H BCAB, HCV RNAQNT, HBSAG, HCV BLANCA #### [facility] , #### CBC, PT, CMP #### [address] Hep C RT-PCR, Qnt (Non-Graph )on 03-01-2021 HCV Log10 5.968 Normal . [facility] Comment on above: Order Comment: Reaso n for Exam Hepatitis C Result Comment: Resu lt Units: log10 IU/mL Performed By: #### H BCAB, HCV RNAQNT, HBSAG, HCV BLANCA #### [facility] , #### CBC, PT, CMP #### [facility] [address] [place] [address] Hepatitis C Quantitation [id number] Normal . [facility] Comment on above: Order Comment: Reaso n for Exam Hepatitis C Performed By: #### H BCAB, HCV RNAQNT, HBSAG, HCV BLANCA #### [facility] , #### CBC, PT, CMP #### [facility] [address] [place] [address] Test Information: Normal . [facility] Comment on above: Order Comment: Reaso n for Exam Hepatitis C Result Comment: The quantitative range of this assay is 15 IU/mL to 100 million IU/mL. Performed at: [facility] [address] [id number] School Occupational Therapist: Zhane Lowe MD, Phone: [phone] Performed By: #### H BCAB, HCV RNAQNT, HBSAG, HCV BLANCA #### [facility] , #### CBC, PT, CMP #### [facility] [address] [place] [address] Hepatitis B Core Antibodyon 03-01-2021 Hepatitis B Core Antibody Negative Normal Negative [facility] Comment on above: Order Comment: Reaso n for Exam Hepatitis C Result Comment: Perf ormed at: [facility] [address] [id number] School Occupational Therapist: Alejandro Carter PhD, Phone: [phone] Performed By: #### H BCAB, HCV RNAQNT, HBSAG, HCV BLANCA #### [facility] , #### CBC, PT, CMP #### [facility] [address] [place] [address] Hepatitis B Surface Antigeno n 03-01-2021 HBsAg Screen Negative Normal Negative [facility] Comment on above: Order Comment: Reaso n for Exam Hepatitis C Performed By: #### H BCAB, HCV RNAQNT, HBSAG, HCV BLANCA #### [facility] , #### CBC, PT, CMP #### [facility] [address] [place] [address] Prothrombin Time INRon 03-01 INR Coag (PPP) [Relative time] 1.4 {INR} Normal [facility] Comment on above: Order Comment: Reaso n for Exam Hepatitis C Result Comment: INR Therapeutic Range A) Pre- and Peroperative OAT started two weeks before surgery. NOT HIP SURGERY: 1.5 - 2.5 HIP SURGERY: 2 - 3 B) Primary and secondary prevention of venous THROMBOSIS: 2 - 3 C) Active venous thrombosis, pulmonary embolism and prevention of recurrent venous thrombosis: 2 - 3 D) Prevention of arterial thromboembolism including patients with mechanical heart valves: 3 - 4.5 PERFORMED BY: [place] [address] PATHOLOGIST SOLAR RESOURCE ASSESSOR CODY KULKARNI M.D. Performed By: #### H BCAB, HCV RNAQNT, HBSAG, HCV BLANCA #### [facility] , #### CBC, PT, CMP #### [facility] [address] [place] [address] PT Coag (PPP) [Time] 15.5 s High 9.0-12.9 [facility] Comment on above: Order Comment: Reaso n for Exam Hepatitis C Performed By: #### H BCAB, HCV RNAQNT, HBSAG, HCV BLANCA #### [facility] , #### CBC, PT, CMP #### [address] Vital Signs Date Time Vital Sign Value Performing Clinician Facility 02-02-2024 16:40-0400 Body height 180.34 cm [facility] 02-02-2024 16:40-0400 Body mass index (BMI) [Ratio] 20.9 kg/m2 [facility] 02-02-2024 16:40-0400 Body temperature 97.6 [degF] [facility] 02-02-2024 16:40-0400 Body weight 68.03 kg [facility] 02-02-2024 16:40-0400 Diastolic blood pressure 88 mm[Hg] [facility] 02-02-2024 16:40-0400 Heart rate 91 /min [facility] 02-02-2024 16:40-0400 Respiratory rate 18 /min [facility] 02-02-2024 16:40-0400 SaO2% (BldA) [Mass fraction] 96 % [facility] 02-02-2024 16:40-0400 Systolic blood pressure 130 mm[Hg] [facility] 01-24-2022 16:30-0400 Body height 180.34 cm Vicente Reyes Other [facility] Other 01-24-2022 16:30-0400 Body mass index (BMI) [Ratio] 22.45 kg/m2 Vicente Reyes Other [facility] Other 01-24-2022 16:30-0400 Body weight 73.03 kg Vicente Reyes Other [facility] Other Encounters Encounter Date Encounter Type Care Provider Facility Start: 02-02-2024 End: 02-02-2024 ambulatory [facility] Work Phone: Start: 02-02-2024 End: 02-02-2024 Patient encounter procedure [facility] [place] Work Phone: Start: 01-24-2022 End: 01-24-2022 ambulatory Vicente Reyes Other [facility] Other Start: 01-24-2022 Office outpatient visit 15 minutes Vicente Reyes [facility] G[facility] Payers Date Payer Category Payer Policy ID Medicaid [id number] Medicaid [facility] [id number] Self-pay Self Pay [id number] Unknown [id number] Social History Date Type Detail Facility Sex Assigned At Merged With [facility] [employer] Other Start: 02-02-2024 Tobacco smoking stat us NHIS Smoker (finding) [facility] Start: 1965 Sex Assigned At Male F [facility] Evaluation note 01-24-2022 Note Date & Type Note Facility 01-24-2022 Evaluation note Encounter Date Diagnosis Assessment Notes Dec, Esophageal varices (ICD-10 - I85.00) Dec, Cirrhosis (ICD-10 - K74.60) TESTING ORDERED Dec, Blood in urine (ICD-10 - R31.9) REFER TO UROLOGY Merged With [facility] [employer] Other Evaluation note Note Date & Type Note Facility Evaluation note No assessment information availa ble [facility] Work Phone: History general Narrative - Reported Note Date & Type Note Facility History general Narrative - Reported Type Medical History Hep C Medical History Psorosis Surgical History Neck Hospitalization History see above Merged With [facility] [employer] Other Summary Purpose Family History Relationship Condition Age at Onset Recorded Date/T barbara mother Chronic obstructive pulmonary disease Unk nown Advance Directives Advance Directive Response Recorded Date/ Time Advance Directives No February 01 4:29pm Reason for Referral Reason EVAL AND TREAT Diagnosis 1 Blood in urine (R31. 9) Referral Organization [facility] Referring Provider First Name Vicente Referring Provider Last Name Eric Referring Provider Specialty Gastroenter ology Referred Organization Unknown Facility Referred Provider Specialty Urology Referral Priority Routine Chief Complaint and Reason for Visit Chief Complaint Skin infection aroun d nipple Additional Source Comments (unrecognized sect ion and content) No Status Records Found INFORMATION SOURCE (unrecogn ized section and content) DATE CREATED AUTHOR 12/23/2021 [facility] REASON FOR VISIT (unrecogniz ed section and content) PATIENT HERE FOR FOLLOW UP T O EGD ON 03/22/2022 FOR ESOPHAGEAL VARICES. Care Teams (unrecognized sec tion and content) Team Status: Active Member Role Status Dates PHYSICIAN NO FAMILY Primary Care Provider Active Team Status: Inactive Member Role Status Dates PHYSICIAN NO FAMILY Primary Care Provider Active Start: February 02, 2024 End: February 02, 2024 Sierra Meade APRN Attending Provider Active S tart: February 02, 2024 End: February 02, 2024 Goals (unrecognized section and content) Goals may be documented in a n alternate section FOR RECORDS PERTAINING TO PATIENTS WHO ARE OR HAVE BEEN ENROLLED IN A CHEMICAL DEPENDENCY/SUBSTANCEABUSE PROGRAM, SOME INFORMATION MAY BE OMITTED. This clinical summary was aggregated from multiple sources. Caution should be exercised in using it in the provision of clinical care. This summary normalizes information from multiple sources, and as a consequence, information in this document may materially change the coding, format and clinical context of patient data. In addition, data may be omitted in some cases. CLINICAL DECISIONS SHOULD BE BASED ON THE PRIMARY CLINICAL RECORDS. [facility] [employer] [facility]. provides no warranty or guarantee of the accuracy or completeness of information in this document.
--- NOTE | 2024-02-08 18:56 | ED.GENADUL1 ---
HPI HPI - General Adult General Chief complaint: Recheck/Abnormal Lab/Rx Stated complaint: TO HAVE PACKING REMOVED Time Seen by Provider: 02/08/24 18:11 Source: patient Mode of arrival: walk-in Limitations: no limitations History of Present Illness HPI narrative: 58-year-old male presents here with chief complaint of removed from an abscess on his chest wall. Patient was seen here by myself 2 days ago in the emergency room. He was given IV antibiotics and currently on doxycycline. Chest wall abscess looks much improved. Packing removed when we remove the dressing when he arrived here to the emergency room. Patient denies any fever states he feels much better. Related Data Home Medications ?Medication ?Instructions ?Recorded ?Confirmed hydrocodone 5 mg-acetaminophen 325 0.5 tab PO Q6H PRN pain 01/01/23 01/01/23 mg tablet ibuprofen 200 mg capsule 600 mg PO BID 01/01/23 01/01/23 Allergies Allergy/AdvReac Type Severity Reaction Status Date / Time No Known Drug Allergies Allergy Verified 01/01/23 11:24 Opioid HPI Opioid Management Most Recent Opioid Data: Last Pain Scale 8 02/06/24 14:18 Last MAR Pain Assessment 02/06/24 14:18 Review of Systems ROS Narrative All Systems are negative except as noted/marked.All systems reviewed and otherwise negative Exam Narrative Exam Narrative: Nurses note and vital signs reviewed and patient is not hypoxic. General: The patient appears well and in no apparent distress. Patient is resting comfortably on cart. Skin: Warm, dry, no pallor noted. No abscess improving small amount or area of induration packing removed tolerated well nontender at this time Head: Normocephalic, atraumatic Eye: Normal conjunctiva, no drainage, EOMI. PERRL Ears, Nose, Mouth, and Throat: oral mucosa is moist. Nares patent. Mouth without vesicles. Ear canals patent. Tm's without Erythema Cardiovascular: Regular Rate and Rhythm Musculoskeletal: The patient has no evidence of calf tenderness, no pitting edema, symmetrical pulses noted bilaterally Neurological: A&O x4, normal speech Psychiatric: Cooperative Constitutional Vital Signs, click to edit/add: Last Vital Signs Temp 97.5 F L 02/08/24 18:08 Pulse 80 02/08/24 18:08 Resp 20 02/08/24 18:08 BP 135/80 02/08/24 18:08 Pulse Ox 97 02/08/24 18:08 O2 Del Method Room Air 02/08/24 18:08 Course Vital Signs Vital signs: Vital Signs Temperature 97.5 F L 02/08/24 18:08 Pulse Rate 80 02/08/24 18:08 Respiratory Rate 20 02/08/24 18:08 Blood Pressure 135/80 02/08/24 18:08 Pulse Oximetry 97 02/08/24 18:08 Oxygen Delivery Method Room Air 02/08/24 18:08 Temperature 97.5 F L 02/08/24 18:08 Pulse Rate 80 02/08/24 18:08 Respiratory Rate 20 02/08/24 18:08 Blood Pressure 135/80 02/08/24 18:08 Pulse Oximetry 97 02/08/24 18:08 Oxygen Delivery Method Room Air 02/08/24 18:08 Medical Decision Making MDM Narrative Medical decision making narrative: Here for wound evaluation. Patient had his packing placed to the chest wall 2 days ago. He states he feels much better. Chest wall abscess does look much improved. Upon arrival the dressing was removed and packing did come out with the dressing. No more further packing is necessary patient abscess is being cleaned irrigated by nursing staff new dressing will be applied. Patient is taking his antibiotics as prescribed and follow-up with his primary care physician. Patient looks well at discharge Medical Records Medical records reviewed: Yes I reviewed the patient's medical records Lab Data Lab results reviewed: Yes I reviewed the patient's lab results Discharge Plan Discharge Stand Alone Forms: Portal Instructions Chief Complaint: Recheck/Abnormal Lab/Rx Clinical Impression: Wound check, abscess Patient Disposition: Home, Self-Care Time of Disposition Decision: 18:55 Condition: Good Prescriptions / Home Meds: No Action hydrocodone-acetaminophen 5-325 mg tablet 0.5 tab PO Q6H PRN (Reason: pain) ibuprofen 200 mg capsule 600 mg PO BID Print Language: Greenlandic Instructions: Warm Compress or Soak (ED) Referrals: Physician,Non-Staff, MD [Primary Care Provider] - 1 week
== END 2024-02-08 19:11 | disposition home or self-care (01) ==
PROVIDERS: Emergency Provider Emergency Medicine; Family Provider Family Medicine
DX: Z48.00 Encounter for change or removal of nonsurgical wound dressing (principal)
CPT/HCPCS: 99281